=== PATIENT | female | born 1955 | race Asian ===

== ENCOUNTER → 2017-08-05 | Outpatient (CLI) | payer MEDICARE ==
--- NOTE | 2017-08-07 17:54 | WOMENS IMAGING REPORT ---
EXAM DESCRIPTION: BILAT DIAGNOSTIC MAMMO W/CAD COMPLETED DATE/TIME: 08/05/2017 11:46 am REASON FOR STUDY: PERSONAL HX OF CANCER; Z85.3 Z85.3 PERSONAL HISTORY OF MALIGNANT NEOPLASM OF [address] COMPARISON: 2014 TECHNIQUE: Standard craniocaudal and mediolateral oblique views of each breast recorded using digita l acquisition. Additional left breast 90 mediolateral view. Additional left breast compression magnification mammo grams in the CC and MLO orientations. LIMITATIONS: None. FINDINGS: RIGHT BREAST MASSES: No suspicious masses. CALCIFICATIONS: No new or suspicious calcifications. ARCHITECTURAL DISTORTION: None. DEVELOPING DENSITY: None. ASYMMETRY: None noted. OTHER: No other significant findings. LEFT BREAST MASSES: No suspicious masses. CALCIFICATIONS: No new or suspicious calcifications. ARCHITECTURAL DISTORTION: There is post therapeutic architectural distortion in the far lateral left breast 2 to 3 o'clock position in an area of prior lumpectomy. DEVELOPING DENSITY: None. ASYMMETRY: None noted. OTHER: No other significant finding. Read with the assistance of CAD: .[facility] - R2 Cenova Version 1.3 .[facility] Imaging - R2 Cenova Version 1.3 .[facility] Imaging - R2 Cenova Version 2.4 .[facility] [place] R2 Cenova Version 2.4 .[facility] - R2 Certified Credit Counselor Version 9.2 IMPRESSION: No mammographic evidence for malignancy bilaterally. BREAST DENSITY: c. The breasts are heterogeneously dense, which may obscure small masses. BIRAD: 2 Benign findings. RECOMMENDATION: RECOMMENDED FOLLOW UP: Please continue right breast screening, left breast diagnosti c mammograms in July 2018 SPECIFIC INTERVENTION/IMAGING/CONSULTATION RECOMMENDED:No additional intervention/ imaging/consultati on needed at this time. COMMUNICATION:Patient notified by letter COMMENT: The patient has been notified of the results by letter per SA requirements. Additional no tification policies are in place for contacting patient with suspicious or incomplete findings. Quality ID #225: The [employer] recommends an annual screening mammogram for women aged 40 years or over. This facility utilizes a reminder system to ensure that all patients receive reminder letters, and/or direct phone calls for appointments. This includes reminders for routine scr eening mammograms, diagnostic mammograms, or other Breast Imaging Interventions when appropriate. Th is patient will be placed in the appropriate reminder system. The [employer] (ACR) has developed recommendations for screening MRI of the breast s in certain patient populations, to be used in conjunction with mammography. Breast MRI surveillanc e may be appropriate for women with more than 20% lifetime risk of developing breast cancer as deter mined by genetic testing, significant family history of the disease, or history of mantle radiation f or Hodgkins Disease. ACR Practice Guidelines 2008. TECHNICAL DOCUMENTATION: FINDING NUMBER: (1) ASSESSMENT: (1) JOB ID: [id number] [employer]- All Rights Reserved Reading location - IP/workstation name: [facility]
== END ==
LOC: WI 11:06
PROVIDERS: ATTEND Physician Assistant
DX: Z85.3 Personal history of malignant neoplasm of breast (principal)
CPT/HCPCS: 77066

== ENCOUNTER 2017-12-24 07:49 | Day surgery (SDC) | payer MEDICARE ==
[2017-12-15 11:33] LABS: HEMATOCRIT 40.1 % (36.0-47.0); HEMOGLOBIN 13.6 g/dL (12.0-15.5); MEAN CORPUSCULAR HGB CONC 33.8 g/dL (32.0-36.0); MEAN CORPUSCULAR VOLUME 89 fl (80-97); PLATELET COUNT 360 10^3/uL (150-450); RED BLOOD COUNT 4.52 10^6/uL (3.72-5.28); RED CELL DISTRIBUTION WIDTH 13.2 % (11.5-14.0); WHITE BLOOD COUNT 9.9 10^3/uL (4.0-10.5)
[2017-12-15 11:47] LABS: APPEARANCE,URINE CLEAR; BILIRUBIN,URINE NEGATIVE (NEGATIVE); COLOR,URINE STRAW; GLUCOSE, URINE NEGATIVE (NEGATIVE); KETONES,URINE NEGATIVE (NEGATIVE); LEUKOCYTE ESTERASE,URINE NEGATIVE (NEGATIVE); NITRITE,URINE NEGATIVE (NEGATIVE); PROTEIN,URINE NEGATIVE (NEGATIVE); URINE SPECIFIC GRAVITY 1.016; UROBILINOGEN,URINE NEGATIVE mg/dL (<2.0)
--- NOTE | 2017-12-15 12:32 | RADIOLOGY REPORT (SQ) ---
EXAM DESCRIPTION: CHEST PA/LATERAL COMPLETED DATE/TIME: 12/15/2017 11:59 am REASON FOR STUDY: PRE-OP COMPARISON: None. EXAM PARAMETERS: NUMBER OF VIEWS: two views TECHNIQUE: Digital Frontal and Lateral radiographic views of the chest acquired. RADIATION DOSE: NA LIMITATIONS: none FINDINGS: LUNGS AND PLEURA: No opacities, masses or pneumothorax. No pleural effusion. MEDIASTINUM AND HILAR STRUCTURES: No masses or contour abnormalities. HEART AND VASCULAR STRUCTURES: Heart normal size. No evidence for failure. BONES: No acute findings. HARDWARE: None in the chest. OTHER: No other significant finding. IMPRESSION: NO SIGNIFICANT RADIOGRAPHIC FINDING IN THE CHEST. TECHNICAL DOCUMENTATION: JOB ID: [id number] [employer]- All Rights Reserved Reading location - IP/workstation name: [email or web address]
--- NOTE | 2017-12-16 08:25 | EKG REPORT ---
SEVERITY:- NORMAL ECG - SINUS RHYTHM : Confirmed by: Siobhan Samuel MD 16-Dec-2017 08:25:06
[~2017-12-24 07:49] MED LIST: LACTATED RINGERS 1000 ML IV PRN; LIDOCAINE 0.5% INJ-PF (5 MG/ML) 50 ML SDV SUBCUT PRN
[2017-12-24] MEDS ORDERED: LIDOCAINE 1%/EPINEPHRINE INJ 20 ML VIAL ONE (07:59)
[2017-12-24] MEDS ORDERED: FENTANYL CITRATE INJ/PF 100 MCG/2 ML AMPUL ONE (10:16)
[2017-12-24] MEDS ORDERED: ONDANSETRON HCL INJ/PF 4 MG/2 ML SDV ONE (10:17)
[2017-12-24] MEDS ORDERED: MIDAZOLAM 2 MG/2 ML INJ ONE (10:17)
[2017-12-24] MEDS ORDERED: DEXAMETHASONE SOD PHOSPHATE INJ 4 MG/1 ML VIAL ONE (10:17)
[2017-12-24] MEDS ORDERED: PROPOFOL INJ 200 MG/20 ML VIAL IV ONE (10:17)
[2017-12-24] MEDS ORDERED: DIPHENHYDRAMINE HCL 50 MG/ML VIAL IV PRN (10:55)
[2017-12-24] MEDS ORDERED: PROMETHAZINE HCL INJ 25 MG/1 ML VIAL IV PRN ×2 (10:55)
[2017-12-24] MEDS ORDERED: FENTANYL CITRATE INJ/PF 100 MCG/2 ML AMPUL IV PRN ×3 (10:55)
[2017-12-24] MEDS ORDERED: MEPERIDINE HCL/PF INJ 25 MG/1 ML DISP.SYRIN IV PRN (10:55)
[2017-12-24] MEDS ORDERED: MORPHINE SULFATE 10 MG/ML INJ IV PRN (10:55)
[2017-12-24] MEDS ORDERED: OXYCODONE-ACETAMINOPHEN 5-325 MG TABLET PO PRN ×5 (10:55→13:30)
[2017-12-24] MEDS ORDERED: ONDANSETRON HCL INJ/PF 4 MG/2 ML SDV IV PRN (12:26)
[2017-12-24] MEDS ORDERED: RINGERS SOLUTION,LACTATED 1,000 ML IV PRN (12:28)
[2017-12-24] MEDS ORDERED: HYDROMORPHONE HCL INJ/PF 2 MG/ML AMPULE IV PRN (12:29)
[2017-12-24] MEDS ORDERED: IBUPROFEN 800 MG TABLET PO PRN (12:30)
[2017-12-24 14:41] VITALS: BP 107/66
--- NOTE | 2017-12-25 22:58 | Operative Report ---
Operative Report DATE OF SURGERY: 12/24/17 PREOPERATIVE DIAGNOSIS: Endometrial thickening, Postmenopausal bleeding POSTOPERATIVE DIAGNOSIS: WILBUR - cervical stenosis OPERATION: EUA, Paracervical block, Hysteroscopy, D&C, Ultrasound Guided SURGEON: TORIE GODOY 1ST TRAY DELIVERY AIDE: CHERYL FERREIRA ANESTHESIA: GA TISSUE REMOVED OR ALTERED: endometrial currettings COMPLICATIONS: cervical stenosis ESTIMATED BLOOD LOSS: less than 5ml INTRAOPERATIVE FINDINGS: known uterine prolapse with cystocele and rectocele and adequate descent for vaginal hysterectomy in the future. concern for fasle track due to severe stenosis therefore Ultrasound used (Dr. Ferreira in to assist) to assess endometrium and sampling device appears to be in endometrium but on hysteroscopy tissue appears like ashermans syndrome not consistent with appearance on ultrasound. Reviewed with patient postoperatively that recommendation for hysterectomy with anterior and posterior repair in the near future due to PMB with tamoxifen use PROCEDURE: Anesthesia: [Paris Thompson MD, Caden Garcia CRNA] IVF: [900ml] UOP: 150ml Indications: [62yo with PMB and pessary in placed presents for thickened cystic endometrium and unable to sample lining in office with cervical stenosis. SHe had breast cancer in 2014 and is currently on tamoxifen. The risks, benefits, alternatives were reviewed and she desires to proceed with planned procedure. ] Procedure: The patient was taken to the Operating Room where general anesthesia was obtained without difficulty. She was prepped and draped in the normal sterile fashion in the dorsal lithotomy position. Exam under anesthesia was performed and noted above. A speculum was placed in the vagina. The anterior cervix was grasped with a single-tooth tenaculum and the uterus sounded to 8 cm after paracervical block was performed with 8 mL of 1% lidocaine with epinephrine. Sequential dilators were then used to dilate the cervix to accommodate the Myosure hysteroscope. The hysteroscope was then gently advanced into the uterine cavity in the usual fashion with visualization of the fibrotic scarred appearing possible endometrium. To confirm if proper location Ultrasound was used and Dr. Ferreira in to assist and confirm placement of sampling device. The hysteroscope removed prior to ultrasound. At this time gentle curettage was performed until a gritty texture was noted. All instruments were removed from the patient's cervix and vagina. Silver nitrate was applied to the tenaculum site for hemostasis. Sponge lap needle and instrument counts are correct 2. No perioperative antibiotics were given as is not indicated for this procedure. The patient tolerated the procedure well and was taken to the recovery area awake and in stable condition.
== END 2017-12-24 14:10 | disposition home or self-care (01) ==
LOC: OROUT 07:49
PROVIDERS: ATTEND Student in an Organized Health Care Education/Training Program
DX: N95.0 Postmenopausal bleeding (principal); N88.2 Stricture and stenosis of cervix uteri; M19.90 Unspecified osteoarthritis, unspecified site; I10 Essential (primary) hypertension; E11.9 Type 2 diabetes mellitus without complications; Z79.84 Long term (current) use of oral hypoglycemic drugs; Z79.899 Other long term (current) drug therapy; Z91.040 Latex allergy status; Z85.3 Personal history of malignant neoplasm of breast; Z79.810 Long term (current) use of selective estrogen receptor modulators (SERMs); Z79.82 Long term (current) use of aspirin
CPT/HCPCS: 93005; 36415; 82962; 85027; 81001; 88305 ×2; 71046; 93010; 58558; J2250; J1100; J3010; J3490; J2405; J2704; 952

== ENCOUNTER → 2018-08-12 | Outpatient (CLI) | payer MEDICARE ==
--- NOTE | 2018-08-13 15:55 | WOMENS IMAGING REPORT ---
EXAM DESCRIPTION: 3D SCREENING MAMMO BILAT COMPLETED DATE/TIME: 08/13/2018 3:29 pm REASON FOR STUDY: ROUTINE BILATERAL SCREENING;Z12.31 Z12.31 ENCNTR SCREEN MAMMOGRAM FOR MALIGNANT N EOPLASM OF ZAKI COMPARISON: 08/05/2017. EXAM PARAMETERS: Standard craniocaudal and mediolateral oblique views of each breast recorded using digital acquisition and breast tomosynthesis. Read with the assistance of CAD. .[facility] - [employer] House Supervisor Version 9.2 LIMITATIONS: None. FINDINGS: Findings present which are benign by mammographic criteria. No suspicious masses, calcific ations or architectural distortion. Pertinent benign findings: Stable surgical changes in the left breast. Benign mammographic findings may include one or more of the following: Smooth masses, popcorn/rim/coa rse calcifications, asymmetries, post-procedure changes, and lesions with long-standing stability. IMPRESSION: BENIGN MAMMOGRAPHIC FINDINGS. BIRADS 2 BREAST DENSITY: b. There are scattered areas of fibroglandular density. BIRAD: ASSESSMENT: 2 BENIGN FINDING(S) RECOMMENDATION: ROUTINE SCREENING COMMENT: The patient has been notified of the results by letter per SA requirements. Additional no tification policies are in place for contacting patient with suspicious or incomplete findings. Quality ID #225: The [employer] recommends an annual screening mammogram for women aged 40 years or over. This facility utilizes a reminder system to ensure that all patients receive reminder letters, and/or direct phone calls for appointments. This includes reminders for routine scr eening mammograms, diagnostic mammograms, or other Breast Imaging Interventions when appropriate. Th is patient will be placed in the appropriate reminder system. TECHNICAL DOCUMENTATION: FINDING NUMBER: (1) ASSESSMENT: (1) JOB ID: [id number] [employer]- All Rights Reserved Reading location - IP/workstation name: [email or web address]
== END ==
LOC: WI 11:10
PROVIDERS: ATTEND Internal Medicine Medical Oncology
DX: Z12.31 Encounter for screening mammogram for malignant neoplasm of breast (principal); Z85.3 Personal history of malignant neoplasm of breast
CPT/HCPCS: 77062; 77063; 77066; 77067; G0279

== ENCOUNTER → 2019-03-08 | Outpatient (CLI) | payer MEDICARE ==
--- NOTE | 2019-03-08 13:35 | WOMENS IMAGING REPORT ---
EXAM DESCRIPTION: BONE DENSITY HIP/SPINE COMPLETED DATE/TIME: 03/08/2019 10:30 am REASON FOR STUDY: Z78.0 Z78.0 ASYMPTOMATIC MENOPAUSAL STATE COMPARISON: None. TECHNIQUE: Dual-Energy X-ray Absorptiometry (DEXA) of the AP Spine and Hip. LIMITATIONS: None. FINDINGS: LUMBAR SPINE: The bone mineral density (BMD) measured from L1-L4 in the AP projection correlates with a T-score of -2.5, which is osteoporosis as defined by the World Health Organization. BMD Change vs Baseline: N/A HIP: The bone mineral density (BMD) measured in the left hip correlates with a T-score of -2.2, which is o steopenia as defined by the World Health Organization. BMD Change vs Baseline: N/A 10 year Fracture Risk Assessment: Major Osteoporotic Fracture: Not available. Hip Fracture: Not available. IMPRESSION: 1. LUMBAR SPINE WHO CLASSIFICATION: OSTEOPOROSIS. 2. HIP WHO CLASSIFICATION: OSTEOPENIA. OVERALL ASSESSMENT: WHO CLASSIFICATION: OSTEOPOROSIS. COMMENT: The World Health Organization defines low BMD as follows: T-score: Normal: Greater than -1.0 Osteopenia: Between -1.0 and -2.5 Osteoporosis: Less than -2.5 without fractures Established osteoporosis: Less than -2.5 with fractures In general, you may wish to consider: Diagnosis Treatment Follow-up DEXA Normal BMD Prevention 2-3 years Osteopenia Prevention/Therapy 1-2 years Osteoporosis Therapy Yearly TECHNICAL DOCUMENTATION: JOB ID: [id number]- All Rights Reserved Reading location - IP/workstation name: [email or web address]
== END ==
LOC: WI 09:53
PROVIDERS: ATTEND Physician Assistant
DX: Z78.0 Asymptomatic menopausal state (principal)
CPT/HCPCS: 77080

== ENCOUNTER → 2019-08-05 | Outpatient (CLI) | payer MEDICARE ==
--- NOTE | 2019-08-05 14:05 | WOMENS IMAGING REPORT ---
EXAM DESCRIPTION: 3D DX MAMMO BILAT IMAGES COMPLETED DATE/TIME: 08/05/2019 11:55 am REASON FOR STUDY: Z85.3 PERSONAL HISTORY OF MALIGNANT NEOPLASM OF BREAST Z85.3 PERSONAL HISTORY OF MALIGNANT NEOPLASM OF BREAST COMPARISON: 08/12/2018, 08/05/2017, 07/25/2015 EXAM PARAMETERS: Standard craniocaudal and mediolateral oblique views of each breast recorded using digital acquisition and breast tomosynthesis. Read with the assistance of CAD: .[employer] - [employer] Executive Advisor Version 9.2 LIMITATIONS: None. FINDINGS: RIGHT BREAST MASSES: No suspicious masses. CALCIFICATIONS: No new or suspicious calcifications. ARCHITECTURAL DISTORTION: None. ASYMMETRY: None noted. OTHER: No other significant findings. LEFT BREAST MASSES: No suspicious masses. CALCIFICATIONS: No new or suspicious calcifications. ARCHITECTURAL DISTORTION: Post treatment changes of the left upper outer quadrant. ASYMMETRY: None noted. OTHER: No other significant finding. IMPRESSION: Post treatment changes of the left upper outer quadrant. No evidence of malignancy on t lizzeth's examination. BREAST DENSITY: b. There are scattered areas of fibroglandular density. BIRAD: ASSESSMENT: 2 Benign findings. RECOMMENDATION: RECOMMENDED FOLLOW UP: Birads 1 or 2: No breast imaging finding to explain the patie nt's presenting complaint. Further intervention should be based on the degree of clinical suspicion. SPECIFIC INTERVENTION/IMAGING/CONSULTATION RECOMMENDED:No additional intervention/ imaging/consultati on needed at this time. COMMUNICATION:The imaging findings were not discussed with the patient. Her referring provider has be en notified of the findings. COMMENT: The patient has been notified of the results by letter per SA requirements. Additional no tification policies are in place for contacting patient with suspicious or incomplete findings. Quality ID #225: The [employer] recommends an annual screening mammogram for women aged 40 years or over. This facility utilizes a reminder system to ensure that all patients receive reminder letters, and/or direct phone calls for appointments. This includes reminders for routine scr eening mammograms, diagnostic mammograms, or other Breast Imaging Interventions when appropriate. Th is patient will be placed in the appropriate reminder system. TECHNICAL DOCUMENTATION: FINDING NUMBER: (1) ASSESSMENT: (1) JOB ID: [id number] 2010 [employer]- All Rights Reserved Reading location - IP/workstation name: [email or web address]
== END ==
LOC: WI 11:35
PROVIDERS: ATTEND Physician Assistant
DX: Z08 Encounter for follow-up examination after completed treatment for malignant neoplasm (principal); Z85.3 Personal history of malignant neoplasm of breast
CPT/HCPCS: 77066; G0279; 77062

== ENCOUNTER 2019-10-06 06:47 | Day surgery (SDC) | payer MEDICARE ==
[2019-10-03 12:56] LABS: APPEARANCE,URINE CLEAR; BILIRUBIN,URINE NEGATIVE (NEGATIVE); COLOR,URINE STRAW; GLUCOSE, URINE NEGATIVE (NEGATIVE); KETONES,URINE NEGATIVE (NEGATIVE); LEUKOCYTE ESTERASE,URINE TRACE (NEGATIVE); NITRITE,URINE NEGATIVE (NEGATIVE); PROTEIN,URINE NEGATIVE (NEGATIVE); URINE SPECIFIC GRAVITY 1.006; UROBILINOGEN,URINE NEGATIVE mg/dL (<2.0)
[2019-10-03 13:00] LABS: HEMATOCRIT 40.5 % (36.0-47.0); HEMOGLOBIN 13.7 g/dL (12.0-15.5); MEAN CORPUSCULAR HEMOGLOBIN 30.2 pg (27.0-33.4); MEAN CORPUSCULAR HGB CONC 33.9 g/dL (32.0-36.0); MEAN CORPUSCULAR VOLUME 89 fl (80-97); PLATELET COUNT 406 10^3/uL (150-450); RED BLOOD COUNT 4.54 10^6/uL (3.72-5.28); RED CELL DISTRIBUTION WIDTH 13.8 % (11.5-14.0); WHITE BLOOD COUNT 9.5 10^3/uL (4.0-10.5)
[2019-10-03 13:23] LABS: ALBUMIN 4.7 g/dL (3.5-5.0); ALKALINE PHOSPHATASE 117 U/L (38-126); ANION GAP 11 (5-19); ASPARTATE AMINO TRANSFERASE 27 U/L (14-36); BILIRUBIN,TOTAL 0.6 mg/dL (0.2-1.3); BLOOD UREA NITROGEN 13 mg/dL (7-20); CALCIUM 10.3 mg/dL (8.4-10.2); CARBON DIOXIDE 27 mmol/L (22-30); CHLORIDE 101 mmol/L (98-107); GLUCOSE 105 mg/dL (75-110); POTASSIUM 4.3 mmol/L (3.6-5.0); TOTAL PROTEIN 8.5 g/dL (6.3-8.2)
--- NOTE | 2019-10-03 14:00 | RADIOLOGY REPORT (SQ) ---
EXAM DESCRIPTION: CHEST PA/LATERAL IMAGES COMPLETED DATE/TIME: 10/03/2019 1:53 pm REASON FOR STUDY: PRE-OP COMPARISON: 12/15/2017 EXAM PARAMETERS: NUMBER OF VIEWS: two views TECHNIQUE: Digital Frontal and Lateral radiographic views of the chest acquired. RADIATION DOSE: NA LIMITATIONS: none FINDINGS: LUNGS AND PLEURA: No opacities, masses or pneumothorax. No pleural effusion. MEDIASTINUM AND HILAR STRUCTURES: No masses or contour abnormalities. HEART AND VASCULAR STRUCTURES: Heart normal size. No evidence for failure. BONES: No acute findings. HARDWARE: None in the chest. OTHER: No other significant finding. IMPRESSION: NO SIGNIFICANT RADIOGRAPHIC FINDING IN THE CHEST. TECHNICAL DOCUMENTATION: JOB ID: [id number] 2010 [employer]- All Rights Reserved Reading location - IP/workstation name: [email or web address]
--- NOTE | 2019-10-03 21:32 | EKG REPORT ---
SEVERITY:- NORMAL ECG - SINUS RHYTHM : Confirmed by: Lester Arreaga 03-Oct-2019 21:31:32
[~2019-10-06 06:47] MED LIST changes: +CEFAZOLIN 1 GM/D5W RTU 1 GM/50 ML RTUPB IV ONE; +CEFAZOLIN 1 GM/D5W RTU 1 GM/50 ML RTUPB IV PRN
[2019-10-06] MEDS ORDERED: LIDOCAINE 1%/EPINEPHRINE INJ 20 ML VIAL ONE (08:30)
[2019-10-06] MEDS ORDERED: FENTANYL CITRATE INJ/PF 100 MCG/2 ML AMPUL ONE (08:35)
[2019-10-06] MEDS ORDERED: MIDAZOLAM 2 MG/2 ML INJ ONE (08:35)
[2019-10-06] MEDS ORDERED: SUGAMMADEX SODIUM 200 MG/2 ML SDV IV ONE (08:36)
[2019-10-06] MEDS ORDERED: ONDANSETRON HCL INJ/PF 4 MG/2 ML SDV ONE (08:36)
[2019-10-06] MEDS ORDERED: HYDROMORPHONE HCL INJ/PF 2 MG/ML AMPULE ONE (08:36)
[2019-10-06] MEDS ORDERED: DEXAMETHASONE SOD PHOSPHATE INJ 4 MG/1 ML VIAL ONE (08:36)
[2019-10-06] MEDS ORDERED: LIDOCAINE 2% INJ-PF (100 MG/5 ML) SYRINGE ONE (08:43)
[2019-10-06] MEDS ORDERED: PROPOFOL INJ 200 MG/20 ML VIAL IV ONE (08:43)
[2019-10-06] MEDS ORDERED: FENTANYL CITRATE INJ/PF 100 MCG/2 ML AMPUL IV PRN ×3 (09:18)
[2019-10-06] MEDS ORDERED: MORPHINE SULFATE 10 MG/ML INJ IV PRN ×2 (09:18→11:25)
[2019-10-06] MEDS ORDERED: ONDANSETRON HCL INJ/PF 4 MG/2 ML SDV IV PRN (09:18)
[2019-10-06] MEDS ORDERED: PROMETHAZINE HCL INJ 25 MG/1 ML VIAL IV PRN ×2 (09:18→11:25)
[2019-10-06] MEDS ORDERED: DIPHENHYDRAMINE HCL 50 MG/ML VIAL IV PRN (09:18)
[2019-10-06] MEDS ORDERED: VITAMINS A AND D OINTMENT 56.7 GM TOP PRN (10:24)
[2019-10-06] MEDS ORDERED: MEASLES,MUMPS&RUBELLA VACC/PF 0.5 ML VIAL SUBCUT PRN (11:25)
[2019-10-06] MEDS ORDERED: SIMETHICONE 80 MG TAB.CHEW PO PRN (11:25)
[2019-10-06] MEDS ORDERED: ACETAMINOPHEN 325 MG TABLET PO PRN (11:25)
[2019-10-06] MEDS ORDERED: DIPH/PERTUSS(ACELL)/TETANUS VAC/PF 0.5 ML SYR (>=10YO) IM PRN (11:25)
[2019-10-06] MEDS ORDERED: OXYCODONE-ACETAMINOPHEN 5-325 MG TABLET PO PRN ×2 (11:25)
[2019-10-06] MEDS ORDERED: ACETAMINOPHEN 1,000 MG/100 ML RTUPB IV PRN (11:25)
--- NOTE | 2019-10-06 11:46 | Operative Report ---
Operative Report DATE OF SURGERY: 10/06/19 PREOPERATIVE DIAGNOSIS: Uterovaginal prolapse, personal history of malignant ne oplasm of the breast POSTOPERATIVE DIAGNOSIS: Same OPERATION: Robotic assisted total laparoscopic hysterectomy with bilateral salpingo-oophorectomy and posterior repair SURGEON: GRACE BARRIOS 1ST HOUSE BUILDER: MAURA HUNTER ANESTHESIA: GA TISSUE REMOVED OR ALTERED: Uterus cervix bilateral fallopian tubes and ovaries COMPLICATIONS: None ESTIMATED BLOOD LOSS: 150 cc INTRAOPERATIVE FINDINGS: Menopausal ovaries Lupien tubes with evidence of tubal ligation uterus approximately 8 weeks size, rectocele PROCEDURE: Patient was taken to the operating room prepared and draped in normal sterile fashion in dorsolithotomy position. Under sterile conditions a Perez catheter was placed to gravity. The patient's pessary was removed. speculum was placed into the vagina and the cervix was grasped on the anterior lip with a single- tooth tenaculum. The cervix was then dilated to accommodate a medium V care uterine manipulator. Manipulator was placed gloves were changed and attention was turned to the upper portion of the case. A 2-1/2 cm umbilical skin incision was made 11 blade and this was carried through to the underlying layer of fascia with the same 11 blade. It was grasped to Rosalio's acted with Ontiveros's. Peritoneal cavity was entered bluntly. A GelPort was placed in a normal fashion the camera port and air seal in the appropriate locations. Peritoneal cavity was then inflated with approximately 2 L of CO2 gas. The camera was then introduced into the peritoneal cavity through the camera port and the patient was placed in steep Trendelenburg. The above findings were noted. Under direct visualization two 5 mm ports were placed approximately 10 cm on either side of the umbilicus. The robot was then docked with the vessel sealer placed on the patient's left and the monopolar scissors placed placed on the patient's right. I then unscrubbed and set at the robotic console beginning with the left adnexa the IP ligament was transected from the pelvic sidewall hugging the ovary. The broad ligament was then transected using the vessel sealer up to the round ligament was then bluntly dissected away . the uterine artery was skeletonized using blunt dissection and ligated using the vessel sealer down to the level of the external cervical os. The bladder flap was then begun using monopolar scissors and blunt dissection over the V care cup noted through the mucosa. Attention was then turned to the right adnexa where the IP ligament was transected in a similar fashion. The broad ligament was transected using the vessel sealer. T his was carried through to the round ligament which was dissected away. the Uterine artery was then transected and skeletonized using the vessel sealer and skeletonized using blunt dissection. The vessel sealer was again used to completely transect the uterine artery down to the level of the external cervical os. The bladder flap was completed using similar sharp and blunt dissection. Once the bladder was felt to be adequately away from the lower uterine segment, the colpotomy was begun on the anterior aspect of the cervix following the outline of the V care cup mucosa. The cup was followed in a circumferential fashion completely around the cervix estimate was completely freed. The specimen was then removed through the vaginal defect. The instruments were then changed to a Tito needle warehouse driver and pro-grasp. AV lock needle was introduced through the assistance port. The lock needle was used to close the vaginal cuff and hemostasis. The needle was then removed through the assistance port. The peritoneal cavity was carefully inspected the ureters were noted to both be peristalsing and there was no signs of hydroureter. The robot was then undocked. The fascia was closed at the umbilical skin incision seen 0 Vicryl 3 skin incisions were closed using 4-0 Vicryl. We then went below to begin the inferior portion of the case . Time I carefully inspected the vagina and found that the anterior mucosa was actually well supported the posterior mucosa did show evidence of continued rectocele in need of repair . Therefore the posterior mucosa was grasped in the midline just below the suture line of the vaginal cuff and injected with approximately 10 cc of lidocaine with epi . This was scored with a 15 blade and the vaginal mucosa was dissected sharply using Metzenbaums and bluntly as needed. Once adequate tissue had been dissected away from the rectocele 2 support sutures of 2 oh pop-off Vicryl's were placed in a bridge fashion across the rectocele defect tacking the rectocele down and away . The vaginal mucosa was then transected from the repair using Metzenbaums . Mucosa was then closed using a 2-0 Vicryl runner . I reinspected the vagina at this time and found that there seemed to be adequate support I asked for the LEATHER HEEL BREASTER to create a Valsalva the patient so that I could further assess need for an anterior repair . With Valsalva there was no movement of the anterior vaginal mucosa . The patient completely out of Trendelenburg and assess the vaginal mucosa once more and found it to be held adequately away and I did not note any prolapse at this point . For the decision was made to not perform the anterior repair as it did not seem to be necessary at this time . The case was then concluded, sponge lap and needle counts were correct x2 and the patient was taken to recovery in stable condition.
[2019-10-06] MEDS ORDERED: ACETAMINOPHEN 1,000 MG/100 ML RTUPB IV ONE (11:52)
[2019-10-06] MEDS: IBUPROFEN 800 MG TABLET PO SCH ×2 (13:56→18:37)
[2019-10-06] MEDS ORDERED: KETOROLAC TROMETHAMINE INJ/PF 30 MG/1 ML SDV IV SCH (14:00)
[2019-10-06 17:41] LABS: HEMATOCRIT 36.3 % (36.0-47.0); HEMOGLOBIN 12.1 g/dL (12.0-15.5); MEAN CORPUSCULAR HEMOGLOBIN 29.6 pg (27.0-33.4); MEAN CORPUSCULAR HGB CONC 33.4 g/dL (32.0-36.0); MEAN CORPUSCULAR VOLUME 89 fl (80-97); PLATELET COUNT 351 10^3/uL (150-450); RED BLOOD COUNT 4.09 10^6/uL (3.72-5.28); RED CELL DISTRIBUTION WIDTH 13.8 % (11.5-14.0)
[2019-10-06] MEDS: KETOROLAC TROMETHAMINE INJ/PF 30 MG/1 ML SDV IV SCH (17:51)
[2019-10-06] MEDS: RINGERS SOLUTION,LACTATED 1,000 ML IV PRN (17:51)
[2019-10-06] MEDS: DOCUSATE SODIUM 100 MG CAPSULE PO SCH (17:55)
[2019-10-06] MEDS: METFORMIN HCL 500 MG TABLET PO SCH (20:41)
[2019-10-06] MEDS: ATORVASTATIN CALCIUM 40 MG TABLET PO SCH (21:42)
[2019-10-06] MEDS: AMPICILLIN SODIUM/SULBACTAM NA 3 GM in NORMAL SALINE 100 ML IV SCH (21:50)
[2019-10-07] MEDS: IBUPROFEN 800 MG TABLET PO SCH ×4 (00:27→18:49)
[2019-10-07] MEDS: KETOROLAC TROMETHAMINE INJ/PF 30 MG/1 ML SDV IV SCH ×3 (01:28→18:50)
[2019-10-07] MEDS: RINGERS SOLUTION,LACTATED 1,000 ML IV PRN (01:48)
[2019-10-07 05:42] LABS: HEMATOCRIT 32.6 % (36.0-47.0); HEMOGLOBIN 10.9 g/dL (12.0-15.5); MEAN CORPUSCULAR HEMOGLOBIN 29.8 pg (27.0-33.4); MEAN CORPUSCULAR HGB CONC 33.6 g/dL (32.0-36.0); MEAN CORPUSCULAR VOLUME 89 fl (80-97); PLATELET COUNT 314 10^3/uL (150-450); RED BLOOD COUNT 3.66 10^6/uL (3.72-5.28); RED CELL DISTRIBUTION WIDTH 13.9 % (11.5-14.0); WHITE BLOOD COUNT 13.4 10^3/uL (4.0-10.5)
[2019-10-07] MEDS: AMPICILLIN SODIUM/SULBACTAM NA 3 GM in NORMAL SALINE 100 ML IV SCH ×2 (05:49→13:29)
[2019-10-07] MEDS: GABAPENTIN 300 MG CAPSULE PO SCH (09:40)
[2019-10-07] MEDS: DOCUSATE SODIUM 100 MG CAPSULE PO SCH ×2 (09:40→17:40)
[2019-10-07] MEDS: METFORMIN HCL 500 MG TABLET PO SCH ×2 (09:40→17:40)
[2019-10-07] MEDS: PRENATAL VITAMIN W DHA CAPSULE PO SCH (09:41)
[2019-10-07] MEDS: AMLODIPINE BESYLATE 2.5 MG TABLET PO SCH (09:44)
[2019-10-07] MEDS ORDERED: LOSARTAN POTASSIUM 50 MG TABLET PO SCH (10:00)
[2019-10-07] MEDS ORDERED: (PENDING PHARMACY ID) (Telmisartan [Telmisartan] 40 MG) PO SCH (10:00)
[2019-10-07] MEDS: ATORVASTATIN CALCIUM 40 MG TABLET PO SCH (22:36)
[2019-10-08] MEDS: IBUPROFEN 800 MG TABLET PO SCH ×2 (01:53→06:22)
[2019-10-08] MEDS: KETOROLAC TROMETHAMINE INJ/PF 30 MG/1 ML SDV IV SCH (02:12)
--- NOTE | 2019-10-08 09:11 | PDOC DISCHARGE SUMMARY ---
Impression - Admit/DC Date/PCP Admission Date/Primary Care Provider: LOKESH GONZALEZ MD Discharge Date: 10/08/19 - Discharge Diagnosis (1) Uterovaginal prolapse, complete Is this a current diagnosis for this admission?: Yes (2) History of breast cancer in female Is this a current diagnosis for this admission?: Yes (3) Pelvic pain in female Is this a current diagnosis for this admission?: Yes (4) Leukocytosis, unspecified Is this a current diagnosis for this admission?: Yes - Assessment Summary: patient underwent RATLH w/ BSO and posterior repair. Postoperative course patient noted to have a mildly elevated temp and mild tachycardia. Antibiotics intiated with good reslution of both as well as resolution of leukocytosis. She is now ready for discharge home. she is tolerating regular diet and voiding normally - Additional Information Resuscitation Status: Full Code Discharge Diet: As Tolerated Discharge Activity: Balance Activity w/Rest, No Lifting Over 10 Pounds, No Lifting/Push/Pulling, Pelvic Rest, No tub bath Referrals: GRACE BARRIOS MD [ACTIVE STAFF] - 10/21/19 10:00 am (PLEASE CALL THE OFFICE OF ANY QUESTIONS OR CONCERNS.) LOKESH GONZALEZ MD [Primary Care Provider] - Prescriptions: Oxycodone HCl/Acetaminophen [Percocet 5-325 mg Tablet] 1 tab PO Q4HP PRN #30 tablet PRN Reason: Docusate Sodium [Colace 100 mg Capsule] 100 mg PO BID #60 capsule Ibuprofen [Motrin 800 mg Tablet] 800 mg PO Q6 #60 tablet Home Medications: Amlodipine Besylate 2.5 mg PO DAILY 12/15/17 Aspirin [Aspirin EC] 81 mg PO DAILY 12/15/17 Atorvastatin Calcium 40 mg PO QHS 12/15/17 Calcium Carb, Citrate/Vit D3 [Calcium + D3 ER Tablet] 600 mg PO DAILY 12/15/17 Gabapentin 300 mg PO DAILY 12/15/17 Telmisartan 40 mg PO DAILY 10/03/19 Alendronate Sodium 70 mg PO MO@0600 10/06/19 Metformin HCl [Glucophage 500 mg Tablet] 500 mg PO BID 10/06/19 Docusate Sodium [Colace 100 mg Capsule] 100 mg PO BID #60 capsule 10/08/19 Ibuprofen [Motrin 800 mg Tablet] 800 mg PO Q6 #60 tablet 10/08/19 Oxycodone HCl/Acetaminophen [Percocet 5-325 mg Tablet] 1 tab PO Q4HP PRN #30 tablet 10/08/19 History of Present Illiness History of Present Illness: VANGIE NUNO is a 64 year old female Physical Exam - Physical Exam Vital Signs: Temp Pulse Resp BP Pulse Ox 98.4 F 87 17 127/76 H 98 10/08/19 07:52 10/08/19 07:52 10/08/19 07:52 10/08/19 07:52 10/08/19 07:52 Intake & Output 10/07/19 10/08/19 10/09/19 06:59 06:59 06:59 Intake Total 3644 Output Total 3000 1525 Balance 644 -1525 Weight 56.92 kg 55.8 kg Results Laboratory Results: WBC 13.4 10^3/uL (4.0-10.5) H 10/07/19 05:10 RBC 3.66 10^6/uL (3.72-5.28) L 10/07/19 05:10 Hgb 10.9 g/dL (12.0-15.5) L 10/07/19 05:10 Hct 32.6 % (36.0-47.0) L 10/07/19 05:10 MCV 89 fl (80-97) 10/07/19 05:10 MCH 29.8 pg (27.0-33.4) 10/07/19 05:10 MCHC 33.6 g/dL (32.0-36.0) 10/07/19 05:10 RDW 13.9 % (11.5-14.0) 10/07/19 05:10 Plt Count 314 10^3/uL (150-450) 10/07/19 05:10 Sodium 139.0 mmol/L (137-145) 10/03/19 11:15 Potassium 4.3 mmol/L (3.6-5.0) 10/03/19 11:15 Chloride 101 mmol/L (98-107) 10/03/19 11:15 Carbon Dioxide 27 mmol/L (22-30) 10/03/19 11:15 Anion Gap 11 (5-19) 10/03/19 11:15 BUN 13 mg/dL (7-20) 10/03/19 11:15 Creatinine 0.42 mg/dL (0.52-1.25) L 10/03/19 11:15 Est GFR ( Amer) > 60 (>60) 10/03/19 11:15 Est GFR (MDRD) Non-Af > 60 (>60) 10/03/19 11:15 Glucose 105 mg/dL (75-110) 10/03/19 11:15 POC Glucose 114 mg/dL (70-110) H 10/07/19 07:27 Calcium 10.3 mg/dL (8.4-10.2) H 10/03/19 11:15 Total Bilirubin 0.6 mg/dL (0.2-1.3) 10/03/19 11:15 Direct Bilirubin 0.0 mg/dL (0.0-0.4) 10/03/19 11:15 Neonat Total Bilirubin Not Reportable 10/03/19 11:15 Neonat Direct Bilirubin Not Reportable 10/03/19 11:15 Neonat Indirect Bili Not Reportable 10/03/19 11:15 AST 27 U/L (14-36) 10/03/19 11:15 ALT 21 U/L (<35) 10/03/19 11:15 Alkaline Phosphatase 117 U/L (38-126) 10/03/19 11:15 Total Protein 8.5 g/dL (6.3-8.2) H 10/03/19 11:15 Albumin 4.7 g/dL (3.5-5.0) 10/03/19 11:15 Urine Color STRAW 10/03/19 11:00 Urine Appearance CLEAR 10/03/19 11:00 Urine pH 6.0 (5.0-9.0) 10/03/19 11:00 Ur Specific [place] 1.006 10/03/19 11:00 Urine Protein NEGATIVE mg/dL (NEGATIVE) 10/03/19 11:00 Urine Glucose (UA) NEGATIVE mg/dL (NEGATIVE) 10/03/19 11:00 Urine Ketones NEGATIVE mg/dL (NEGATIVE) 10/03/19 11:00 Urine Blood NEGATIVE (NEGATIVE) 10/03/19 11:00 Urine Nitrite NEGATIVE (NEGATIVE) 10/03/19 11:00 Urine Bilirubin NEGATIVE (NEGATIVE) 10/03/19 11:00 Urine Urobilinogen NEGATIVE mg/dL (<2.0) 10/03/19 11:00 Ur Leukocyte Esterase TRACE (NEGATIVE) H 10/03/19 11:00 Urine WBC (Auto) 1 /HPF 10/03/19 11:00 Urine RBC (Auto) 0 /HPF 10/03/19 11:00 Squamous Epi Cells Auto <1 /HPF 10/03/19 11:00 Urine Mucus (Auto) RARE /LPF 10/03/19 11:00 Urine Ascorbic Acid NEGATIVE (NEGATIVE) 10/03/19 11:00 COVID-19 Source NASOPHARYNGEAL 10/03/19 11:05 COVID-19 (CORNELIO) NOT DETECTED 10/03/19 11:05 Blood Type O POSITIVE 10/03/19 11:15 Antibody Screen NEGATIVE 10/03/19 11:15 Impressions: Chest X-Ray 10/03/19 11:33 IMPRESSION: NO SIGNIFICANT RADIOGRAPHIC FINDING IN THE CHEST. Stroke Is this a Stroke Patient?: No Acute Heart Failure - Is this a Heart Failure Patient?: No
[2019-10-08] MEDS: AMLODIPINE BESYLATE 2.5 MG TABLET PO SCH (10:01)
[2019-10-08] MEDS: PRENATAL VITAMIN W DHA CAPSULE PO SCH (10:03)
[2019-10-08] MEDS: METFORMIN HCL 500 MG TABLET PO SCH (10:04)
[2019-10-08] MEDS: GABAPENTIN 300 MG CAPSULE PO SCH (10:04)
[2019-10-08 12:47] VITALS: BP 127/72
[2019-10-10] MEDS ORDERED: (PENDING PHARMACY ID) (Alendronate Sodium [Alendronate Sodium] 70 MG) PO SCH (06:00)
== END 2019-10-08 14:40 | disposition home or self-care (01) ==
LOC: OROUT 06:47 → 2N 12:21 → OROUT 10-08 14:40
PROVIDERS: ATTEND Obstetrics & Gynecology
DX: N81.3 Complete uterovaginal prolapse (principal); R10.2 Pelvic and perineal pain; D72.829 Elevated white blood cell count, unspecified; N88.8 Other specified noninflammatory disorders of cervix uteri; N80.0 Endometriosis of uterus; D25.1 Intramural leiomyoma of uterus; R00.0 Tachycardia, unspecified; R50.9 Fever, unspecified; Z85.3 Personal history of malignant neoplasm of breast; I10 Essential (primary) hypertension; E11.9 Type 2 diabetes mellitus without complications; Z79.899 Other long term (current) drug therapy; Z79.82 Long term (current) use of aspirin; Z03.818 Encounter for observation for suspected exposure to other biological agents ruled out
CPT/HCPCS: 57250; 58571; S2900; 36415; 71046; 80053; 81001; 82962; 840; 85027; 86850; 86900; 86901; 87635; 88307; 93005; 93010; 94799; A4649; C1758; C9803; J0131; J0295; J0690; J1100; J1170; J1885; J2001; J2250; J2405; J2704; J3010; J3490; J7050; J7120